=== PATIENT | male | born 1960 | race African-American/Black ===

== ENCOUNTER 2022-01-27 19:26 | Emergency (ER) | payer MEDICAID, OTHER ==
[~2022-01-27] VITALS: Ht 180.3 cm; Wt 75.0 kg
[~2022-01-27 19:26] MED LIST: KEPP500 MT; LEVO500T90 MT
[2022-01-27 19:33] VITALS: BP 121/82
[2022-01-28] MEDS ORDERED: PENI500T MT (00:29)
[2022-01-28] MEDS ORDERED: MOUT1KIT2 MM (00:29)
[2022-01-28] MEDS ORDERED: ACETAMINOPHEN 325MG TABLET PO ONE (00:30)
== END 2022-01-28 01:23 | disposition home or self-care (01) ==
LOC: ER 19:26
DX: S01.512A Laceration without foreign body of oral cavity, initial encounter (principal); X58.XXXA Exposure to other specified factors, initial encounter; Y93.89 Activity, other specified; Y92.89 Other specified places as the place of occurrence of the external cause; Y99.8 Other external cause status
CPT/HCPCS: 99282